=== PATIENT | female | born 1955 | race Caucasian/White ===

== ENCOUNTER 2022-03-21 06:59 | Emergency (ER) | payer MEDICARE, OTHER ==
[~2022-03-21] VITALS: Ht 157 cm; Wt 51.0 kg
--- NOTE | 2022-03-21 07:15 | ED Cough/URI ---
General Chief Complaint: Cough/Cold/Flu Symptoms Stated Complaint: SOA/NAUSEA/BODYACHES History of Present Illness Date Seen by Provider: Mar 21, 2022 Time Seen by Provider: 07:15 Initial Comments 66-year-old female presents with feeling of shortness of breath, some body aches some nausea and some generalized malaise. No reports of vomiting, fever, chills. She does have a productive cough. Reports that her symptoms started around midnight. Patient reports that she quit smoking 7 days ago. Allergies and Home Medications Allergies Coded Allergies: No Allergy Information Available (Unverified , 03/21/22) pt states pain killer but doesnt know name Patient Home Medication List Home Medication List Reviewed: Yes Review of Systems Review of Systems Constitutional: No chills, No fever; malaise EENTM: no symptoms reported Respiratory: cough, short of breath; No wheezing Cardiovascular: No chest pain, No palpitations Gastrointestinal: No abdominal pain, No diarrhea; nausea; No vomiting Musculoskeletal: no symptoms reported Skin: no symptoms reported Psychiatric/Neurological: No Symptoms Reported Hematologic/Lymphatic: No Symptoms Reported Physical Exam Vital Signs - First Documented 03/21/22 07:36 Temp 36.3 Pulse 92 Resp 20 B/P (MAP) 145/74 (97) Pulse Ox 98 O2 Delivery Room Air Capillary Refill : Height: '" Weight: lbs. oz. kg; BMI Method: General Appearance: no apparent distress, other (Not feeling well, appears older than stated age) HEENT: PERRL/EOMI, pharynx normal Neck: full range of motion, supple Respiratory: no respiratory distress, no accessory muscle use, other (Some mild diffuse bronchial sound) Cardiovascular: normal peripheral pulses, regular rate, rhythm Gastrointestinal: non tender, soft Extremities: non-tender Neurologic/Psychiatric: alert, normal mood/affect, oriented x 3 Skin: normal color, warm/dry Progress/Results/Core Measures Suspected Sepsis SIRS Temperature: Pulse: Respiratory Rate: Laboratory Tests 03/21/22 07:20: White Blood Count 7.7 Blood Pressure / Mean: Laboratory Tests 03/21/22 07:20: Creatinine 0.45L, Platelet Count 276, Total Bilirubin 0.7 Results/Orders Lab Results Laboratory Tests Test 03/21/22 07:20 Range/Units White Blood Count 7.7 4.3-11.0 10^3/uL Red Blood Count 2.85 L 3.80-5.11 10^6/uL Hemoglobin 9.7 L 11.5-16.0 g/dL Hematocrit 29 L 35-52 % Mean Corpuscular Volume 101 H 80-99 fL Mean Corpuscular Hemoglobin 34 25-34 pg Mean Corpuscular Hemoglobin Concent 34 32-36 g/dL Red Cell Distribution Width 12.8 10.0-14.5 % Platelet Count 276 130-400 10^3/uL Mean Platelet Volume 8.0 L 9.0-12.2 fL Immature Granulocyte % (Auto) 0 % Neutrophils (%) (Auto) 55 42-75 % Lymphocytes (%) (Auto) 29 12-44 % Monocytes (%) (Auto) 14 H 0-12 % Eosinophils (%) (Auto) 2 0-10 % Basophils (%) (Auto) 1 0-10 % Neutrophils # (Auto) 4.2 1.8-7.8 10^3/uL Lymphocytes # (Auto) 2.2 1.0-4.0 10^3/uL Monocytes # (Auto) 1.1 H 0.0-1.0 10^3/uL Eosinophils # (Auto) 0.1 0.0-0.3 10^3/uL Basophils # (Auto) 0.1 0.0-0.1 10^3/uL Immature Granulocyte # (Auto) 0.0 0.0-0.1 10^3/uL Sodium Level 135 135-145 MMOL/L Potassium Level 4.5 3.6-5.0 MMOL/L Chloride Level 100 98-107 MMOL/L Carbon Dioxide Level 22 21-32 MMOL/L Anion Gap 13 5-14 MMOL/L Blood Urea Nitrogen 6 L 7-18 MG/DL Creatinine 0.45 L 0.60-1.30 MG/DL Estimat Glomerular Filtration Rate 107 BUN/Creatinine Ratio 13 Glucose Level 122 H 70-105 MG/DL Calcium Level 8.6 8.5-10.1 MG/DL Corrected Calcium 9.1 8.5-10.1 MG/DL Total Bilirubin 0.7 0.1-1.0 MG/DL Aspartate Amino Transf (AST/SGOT) 22 5-34 U/L Alanine Aminotransferase (ALT/SGPT) 18 0-55 U/L Alkaline Phosphatase 63 40-136 U/L C-Reactive Protein 2.52 H <0.50 MG/DL Total Protein 6.0 L 6.4-8.2 GM/DL Albumin 3.4 3.2-4.5 GM/DL My Orders Orders - HAMZAH ROBLES DO Cbc With Automated Diff (03/21/22 07:19) Comprehensive Metabolic Panel (03/21/22 07:19) Crp Fs (03/21/22 07:19) Chest 1 View Ap/Pa Only (03/21/22 07:19) Dexamethasone Injection (Decadron Inje (03/21/22 07:30) Albuterol Inhaler (Albuterol) (03/21/22 07:30) Ondansetron Injection (Zofran Injectio (03/21/22 07:30) Medications Given in ED Current Medications Medications Dose Ordered Sig/Kurt Route Start Time Stop Time Status Last Admin Dose Admin Dexamethasone Sodium Phosphate 10 mg ONCE ONCE IV 03/21/22 07:30 03/21/22 07:31 DC 03/21/22 07:36 10 MG Ondansetron HCl 4 mg ONCE ONCE IVP 03/21/22 07:30 03/21/22 07:31 DC 03/21/22 07:36 4 MG Vital Signs/I&O 03/21/22 07:36 Temp 36.3 Pulse 92 Resp 20 B/P (MAP) 145/74 (97) Pulse Ox 98 O2 Delivery Room Air Capillary Refill : Progress Note : Progress Note patient with likely some undiagnosed COPD. Her x-ray is consistent with a viral syndrome along with maybe some mild edema. I will treat her with steroids, due to undiagnosed COPD and likely infection will give her Z-Silverio to help with lung inflammation. Patient given albuterol inhaler. Recommend she use it every 4 hours for the next 24 hours while awake then as needed. Patient was encouraged to follow-up with her primary care provider in 3 days for recheck prior to the weekend. Patient stable discharged Diagnostic Imaging Diagonstic Imaging: Xray Plain Films/CT/US/NM/MRI: chest Comments Date of Exam:03/21/22 CHEST 1 VIEW AP/PA ONLY INDICATION: Shortness of breath FINDINGS: No priors. Heart size within normal limits. There is some thickening of the central airways and borderline prominence of central pulmonary vascularity. Interstitial opacities peripherally may be on an infectious/inflammatory basis or reflect mild interstitial edema. No pleural fluid. No alveolar consolidation. Pacemaker device unremarkable. IMPRESSION: Romeo B's and peripheral interstitial opacities inflammatory versus edema. Mild vascular congestion as well as thickening of the central airways and perihilar bronchial cuffing. No pleural fluid or pneumothorax. Departure Impression Primary Impression: Bronchitis Disposition: 01 HOME, SELF-CARE Condition: Stable Departure-Patient Inst. Referrals: NO,LOCAL PHYSICIAN (PCP/Family) Primary Care Physician Patient Instructions: Acute Bronchitis, Adult (DC), Viral Upper Respiratory Infection, Adult (DC) Add. Discharge Instructions: Please use your inhaler every 4 hours while awake then as needed Please follow-up with your primary care provider on Sunday for recheck of your symptoms to ensure you are improving All discharge instructions reviewed with patient and/or family. Voiced understanding. Scripts Prednisone (Prednisone) 20 Mg Tab 40 MG PO DAILY, #6 TAB 0 Refills Please start on 03/22/2022 Prov: HAMZAH ROBLES DO 03/21/22 Azithromycin (Azithromycin) 250 Mg Tablet 250 MG PO UD, #6 TAB TAKE 2 TABLETS ON DAY ONE THEN TAKE 1 TABLET DAILY FOR FOUR MORE DAYS Prov: HAMZAH ROBLES DO 03/21/22 HAMZAH ROBLES DO Mar 21, 2022 07:15
[2022-03-21 07:29] LABS: BASOPHILS # (AUTO) 0.1 10^3/uL (0.0-0.1); BASOPHILS % (AUTO) 1 % (0-10); EOSINOPHILS # (AUTO) 0.1 10^3/uL (0.0-0.3); EOSINOPHILS % (AUTO) 2 % (0-10); HEMATOCRIT 29 % (35-52); HEMOGLOBIN 9.7 g/dL (11.5-16.0); LYMPHOCYTES # (AUTO) 2.2 10^3/uL (1.0-4.0); LYMPHOCYTES % (AUTO) 29 % (12-44); MEAN CORPUSCULAR HEMOGLOBIN 34 pg (25-34); MEAN CORPUSCULAR HGB CONC 34 g/dL (32-36); MEAN CORPUSCULAR VOLUME 101 fL (80-99); MONOCYTES # (AUTO) 1.1 10^3/uL (0.0-1.0); MONOCYTES % (AUTO) 14 % (0-12); NEUTROPHILS # (AUTO) 4.2 10^3/uL (1.8-7.8); NEUTROPHILS % (AUTO) 55 % (42-75); PLATELET COUNT 276 10^3/uL (130-400); WHITE BLOOD COUNT 7.7 10^3/uL (4.3-11.0)
[2022-03-21] MEDS ORDERED: RT-ALBUTEROL HFA 8.5 GM INHALER IH SCH (07:30)
[2022-03-21] MEDS ORDERED: ONDANSETRON 4 MG/2 ML (SDV) Z0FRAN IVP ONE (07:30)
[2022-03-21 07:49] LABS: ALBUMIN 3.4 GM/DL (3.2-4.5); BILIRUBIN,TOTAL 0.7 MG/DL (0.1-1.0); CALCIUM 8.6 MG/DL (8.5-10.1); CREATININE SERUM 0.45 MG/DL (0.60-1.30); POTASSIUM 4.5 MMOL/L (3.6-5.0)
--- NOTE | 2022-03-21 07:58 | Diagnostic Imaging Report ---
INDICATION: Shortness of breath FINDINGS: No priors. Heart size within normal limits. There is some thickening of the central airways and borderline prominence of central pulmonary vascularity. Interstitial opacities peripherally may be on an infectious/inflammatory basis or reflect mild interstitial edema. No pleural fluid. No alveolar consolidation. Pacemaker device unremarkable. IMPRESSION: Romeo B's and peripheral interstitial opacities inflammatory versus edema. Mild vascular congestion as well as thickening of the central airways and perihilar bronchial cuffing. No pleural fluid or pneumothorax. Dictated by: Dictated on workstation # [id number]
[2022-03-21] MEDS ORDERED: AZIT250T12 PO (08:12)
[2022-03-21] MEDS ORDERED: PRD20T PO (08:12)
[2022-03-21 08:15] VITALS: BP 138/62
== END 2022-03-21 08:16 | disposition home or self-care (01) ==
LOC: ER FS 07:03
DX: J40 Bronchitis, not specified as acute or chronic (principal); J44.9 Chronic obstructive pulmonary disease, unspecified; Z87.891 Personal history of nicotine dependence
CPT/HCPCS: 36415; 71045; 80053; 85025; 86141